=== PATIENT | male | born 1960 | race Caucasian/White ===

== ENCOUNTER 2019-12-09 07:56 | Outpatient (CLI) | payer BC, SELFPAY ==
--- NOTE | ~2019-12-09 | XR_ITS ---
XR chest 2V DATE: 12/09/2019 08:32 INDICATION: Pruritus TECHNIQUE: 2 views COMPARISON: PA and lateral chest FINDINGS: Normal heart size. No hilar or mediastinal enlargement. No pulmonary infiltrate or consolid ation, pleural effusion or pulmonary vascular congestion or pneumothorax. Radiopaque anchor devices a re noted in both humeral heads. Mild degenerative change of the thoracic spine, degenerative change o f the lumbar spine. IMPRESSION: No active cardiopulmonary disease Reviewed, dictated and finalized at location A.
[2019-12-09 08:13] LABS: Hematocrit 40.2 % (40.0-54.0); Hemoglobin 14.2 g/dL (14.0-18.0); Immature Platelet Fraction Pct 1.4 % (1.0-7.0); Mean Corpuscular HGB Conc 35.3 g/dL (32.0-36.0); Mean Corpuscular Hemoglobin 31.8 pg (27.0-31.0); Mean Corpuscular Volume 89.9 fL (78.0-102.0); Mean Platelet Volume 9.4 fl (8.7-11.0); Platelet Count Result 109 K/mm3 (150-420); Red Blood Count 4.47 M/mm3 (4.70-6.10); Red Cell Distribution Width 12.5 % (11.6-14.4); White Blood Count 3.8 K/mm3 (4.8-10.8)
[2019-12-09 08:56] LABS: Alanine Aminotransferase 45 U/L (16-63); Albumin Level 4.1 g/dL (3.4-5.0); Alkaline Phosphatase 85 U/L (46-116); Aspartate Amino Transferase 25 U/L (15-37); Bilirubin,Total 0.5 mg/dL (0.00-1.00); Blood Urea Nitrogen 25 mg/dL (7-18); Calcium 8.6 mg/dL (8.5-10.1); Carbon Dioxide 28 mmol/L (21-32); Chloride 103 mmol/L (98-108); Estimated Glomerular Filt Rate > 60; Glucose 103 mg/dL (70-99); Lactate Dehydrogenase 142 U/L (85-227); Osmolality Calculated 298 mOsm/kg (285-295); Sodium 142 mmol/L (136-145); Total Protein 7.2 g/dL (6.4-8.2)
[2019-12-09 09:00] LABS: Band Neutrophils Percent 0 % (0-6); Basophils Absolute Manual 0.03 K/mm3 (0-0.1); Basophils Percent Manual 1 % (0-1); Eosinophils Absolute Manual 0.03 K/mm3 (0.02-0.5); Eosinophils Percent Manual 1 % (1-6); Lymphocytes Absolute Manual 1.97 K/mm3 (1.1-4.5); Lymphocytes Percent Manual 52 % (18-44); Monocytes Absolute Manual 0.11 K/mm3 (0.1-0.90); Monocytes Percent Manual 3 % (3-9); Neutrophils Absolute Manual 1.63 K/mm3 (1.3-6.7); Neutrophils Percent Manual 43 % (46-73); Total Cells Counted 100
[2019-12-09 09:01] LABS: Platelet Estimate Decreased (Adequate)
[2019-12-09 09:20] LABS: CRP < 0.2 mg/dL (0.0-0.9)
[2019-12-09 09:21] LABS: Thyroid Stimulating Hormone Reflex 2.33 u/IU/mL (0.36-3.74)
[2019-12-09 09:25] LABS: Erythrocyte Sedimentation Rate 6 mm/hr (0-20)
== END 2019-12-09 07:57 | disposition home or self-care (01) ==
PROVIDERS: PCP Internal Medicine; Visit Provider Specialist
DX: L29.9 Pruritus, unspecified (principal)
CPT/HCPCS: 36415; 71046; 80053; 83615; 84443; 85025; 85055; 85652; 86140

== ENCOUNTER 2021-06-26 08:28 | Outpatient (CLI) | payer BC, SELFPAY ==
[2021-06-26 09:28] LABS: Influenza A QL RT-PCR Negative (Negative); Influenza B QL RT-PCR Negative (Negative); SARS-CoV-2 RNA PCR Positive (Negative)
== END 2021-06-26 08:29 | disposition home or self-care (01) ==
PROVIDERS: PCP Internal Medicine; Visit Provider Internal Medicine
DX: U07.1 COVID-19 (principal); J06.9 Acute upper respiratory infection, unspecified
CPT/HCPCS: 87502; C9803; U0003; U0005

== ENCOUNTER 2021-06-28 09:57 | Outpatient (CLI) | payer BC, SELFPAY ==
--- NOTE | 2021-06-28 10:10 | PC.NURSE ---
PT to room 212 amb. A&Ox3. Regeneron infusion plan of care discussed. Pt signed consent. Has no question. Oriented to room. Call muniz in reach. Reminded to call with needs.
[2021-06-28 10:21] VITALS: BP 162/91; PULSE 89; RESP 20; O2SAT 94
[2021-06-28] MEDS: FAMOTIDINE 20 MG TABLET PO (10:27)
[2021-06-28] MEDS: ACETAMINOPHEN 325 MG TABLET 650 MG PO (10:27)
[2021-06-28] MEDS: diphenhydrAMINE HCl CAP 25 MG CAPSULE PO (10:27)
--- NOTE | 2021-06-28 12:06 | PC.NURSE ---
Pt has no complaints. Discharged to home amb per self.
== END 2021-06-28 09:58 | disposition home or self-care (01) ==
LOC: CHSLAB 10:00
PROVIDERS: PCP Internal Medicine; Visit Provider Internal Medicine
DX: U07.1 COVID-19 (principal); J44.9 Chronic obstructive pulmonary disease, unspecified
CPT/HCPCS: A9270; J7050; M0243; Q0244

== ENCOUNTER 2021-06-30 11:31 | Outpatient (CLI) | payer BC, SELFPAY ==
--- NOTE | ~2021-06-30 | XR_ITS ---
EXAMINATION: XR chest 2V EXAM DATE: 06/30/2021 12:47 INDICATION: COVID, Cough, SOB TECHNIQUE: Frontal and lateral projections of the chest obtained and reviewed. Comparison is made to prior examination from 12/09/2019. FINDINGS: Moderate amount of bilateral ill-defined airspace disease likely COVID pneumonia given his tory provided. There is no pneumothorax suspected. Borderline heart size. No sizable pleural effusion . Bilateral shoulder rotator cuff repair anchors. IMPRESSION: Moderate amount of bilateral pneumonia. Reviewed, dictated and finalized at location A. K CHAUFFEUR
--- NOTE | ~2021-06-30 | CT_ITS ---
EXAMINATION: CTA chest PE protocol EXAM DATE: 06/30/2021 15:24 INDICATION: COVID pneumonia. Shortness of breath, cough, positive d-dimer. TECHNIQUE: Spiral CTA of the chest (pulmonary arteries) was performed with 100 cc Omnipaque 350 intr avenous contrast injection. Images were acquired during the pulmonary arterial phase. Coronal maxi mum intensity projection 3D-reconstructions were created by the technologist on dedicated workstation . Axial, coronal and sagittal reformatted images were reviewed. The dose-length product (DLP) for t his examination was 813.83 mGy-cm. The exposure was tailored according to patient size (auto mA exp osure control), and iterative reconstruction (ASIR) was used as additional dose reduction technique. There is no prior study for comparison. FINDINGS: There is suboptimal pulmonary arterial opacification, but enough for diagnostic purposes, no central pulmonary emboli. No segmental pulmonary emboli suspected. No thoracic aortic dissection. Moderate amount of bilateral peripheral predominant groundglass airspace disease, appearance is con sistent with acute phase COVID pneumonia. There are no pleural or pericardial effusions. Tracheobr onchial tree is patent. There is no mediastinal, hilar or axillary lymphadenopathy. There is no p neumothorax. Heart normal in size. No evidence of coronary arterial calcification. Upper abdomen is unremarkable. There is thoracic spondylosis without osteoblastic or osteolytic lesions identifi ed. IMPRESSION: 1. No pulmonary emboli suspected. 2. Moderate airspace disease consistent with acute stage COVID pneumonia. Reviewed, dictated and finalized at location A. NTIFIC TECHNICAL WRITER
[2021-06-30 13:03] LABS: Base Excess ABG 1.7 mmol/L (0-2); HCO3 ABG 24.5 mmol/L (23-29); PCO2 ABG 32.7 mmHg (35-45); PO2 ABG 87.4 mmHg (80-90); Total Hemoglobin 13.4 g/dL (12.0-18.0); pH ABG 7.49 (7.35-7.45)
[2021-06-30 13:04] LABS: Device ROOM AIR; Eosinophils Absolute Auto 0.02 K/mm3 (0.02-0.50); Eosinophils Percent Auto 0.4 % (1.0-6.0); Hematocrit 35.9 % (40.0-54.0); Hemoglobin 12.6 g/dL (14.0-18.0); Immature Granulocyte Absolute 0.03 K/mm3 (0.00-0.00); Immature Granulocyte Percent A 0.6 % (0.0-0.0); Immature Platelet Fraction Pct 1.5 % (1.0-7.0); Lymphocytes Absolute Auto 0.76 K/mm3 (1.10-4.50); Lymphocytes Percent Auto 16.3 % (18.0-42.0); Mean Corpuscular HGB Conc 35.1 g/dL (32.0-36.0); Mean Corpuscular Hemoglobin 31.2 pg (27.0-31.0); Mean Corpuscular Volume 88.9 fL (78.0-102.0); Mean Platelet Volume 9.6 fl (8.7-11.0); Modified Allen's Test Pass; Monocytes Absolute Auto 0.04 K/mm3 (0.10-0.90); Monocytes Percent Auto 0.9 % (2.0-11.0); Neutrophils Absolute Auto 3.8 K/mm3 (1.7-7.2); Neutrophils Percent Auto 81.8 % (50.0-70.0); Platelet Count Result 145 K/mm3 (150-420); Red Blood Count 4.04 M/mm3 (4.70-6.10); Red Cell Distribution Width 12.1 % (11.6-14.4); Site Drawn LEFT RADIAL; White Blood Count 4.7 K/mm3 (4.8-10.8)
[2021-06-30 13:18] LABS: Alanine Aminotransferase 58 U/L (16-63); Albumin Level 2.9 g/dL (3.4-5.0); Alkaline Phosphatase 111 U/L (46-116); Anion Gap 12 mmol/L (8-16); Aspartate Amino Transferase 32 U/L (15-37); Bilirubin,Total 0.4 mg/dL (0.00-1.00); Blood Urea Nitrogen 23 mg/dL (7-18); Calcium 8.6 mg/dL (8.5-10.1); Carbon Dioxide 26 mmol/L (21-32); Chloride 100 mmol/L (98-108); Estimated Glomerular Filt Rate > 60; Glucose 112 mg/dL (70-99); Osmolality Calculated 290 mOsm/kg (285-295); Potassium 3.3 mmol/L (3.5-5.1); Sodium 138 mmol/L (136-145); Total Protein 7.5 g/dL (6.4-8.2)
[2021-06-30 13:26] LABS: CRP 19.5 mg/dL (0.0-0.9)
[2021-06-30 13:43] LABS: D Dimer 0.65 mg/L (0.19-0.50)
== END 2021-06-30 11:32 | disposition home or self-care (01) ==
PROVIDERS: PCP Internal Medicine; Visit Provider Internal Medicine
DX: R06.00 Dyspnea, unspecified (principal); R05.9 Cough, unspecified; U07.1 COVID-19
CPT/HCPCS: 36415; 36600; 71046; 71275; 80053; 82805; 85025; 85055; 85380; 86140; Q9967

== ENCOUNTER → 2022-10-02 10:00 | Outpatient (CLI) | payer BC, SELFPAY ==
--- NOTE | ~2022-10-02 | XR_ITS ---
Lumbosacral Spine: AP, oblique, and lateral views Clinical History: Pain Findings: The normal lordotic curve is maintained. 6 mm anterolisthesis of L4 over L5 noted. No fract ure seen. There is mild facet arthropathy from L3 through S1. The sacroiliac joints are normally outl ined. Impression: 6 mm anterolisthesis of L4 over L5. Mild degenerative spondylosis, as above. Reviewed, dictated and finalized at location . Impression: 6 mm anterolisthesis of L4 over L5. Mild degenerative spondylosis, as above.
== END ==
PROVIDERS: PCP Internal Medicine
DX: M54.50 Low back pain, unspecified (principal); M43.06 Spondylolysis, lumbar region
CPT/HCPCS: 72110

== ENCOUNTER 2024-06-30 08:28 | Outpatient (CLI) | payer BC, SELFPAY ==
--- NOTE | ~2024-06-30 | CT_ITS ---
CT IAC/mastoids BI wo con Ordering provider: August Corley, BYPRODUCT ENGINEER Technique: CT temporal bones was performed by obtaining thin slice axial images. Coronal and sagittal reformatted images were also obtained. No contrast was administered. Reason for exam: . HEARING LOSS OF RT EAR . Comparison: None. Findings: RIGHT TEMPORAL BONE: The mastoid air cells are normal and well aerated. The external auditory canal is normal and well aerated. The tympanic membrane as visualized is intact and normal. The middle ear (including the epitympanum, mesotympanum and hypotympanum) is normal and well aerated. The tegmen ty mpani is intact. The scutum is normal. The auditory ossicles are normal. The cochlea, vestibule, ve stibular and cochlear aqueduct are normal. The semicircular canals are normal. The facial nerve can al is normal. The internal auditory canal is normal. The carotid canal and jugular foramen are nor mal. The temporomandibular joint is normal. LEFT TEMPORAL BONE: The mastoid air cells are normal and well aerated. The external auditory canal is normal and well aerated. The tympanic membrane as visualized is intact and normal. The middle ear ( including the epitympanum, mesotypanum and hypotympanum) is normal and well aerated. The tegmen tympa ni is intact. The scutum is normal. The auditory ossicles are normal. The cochlea, vestibule, vest ibular and cochlear aqueduct are normal. The semicircular canals are normal. The facial nerve canal is normal. The internal auditory canal is normal. The carotid canal and jugular foramen are madelaine l. The temporomandibular joint is normal. The visualized brain parenchyma, paranasal sinuses, and superficial soft tissues are normal for patie nt's age. IMPRESSION: No definite abnormality seen bilaterally. Reviewed, dictated and finalized at location A. ACT CENTER DIRECTOR
== END 2024-06-30 08:29 | disposition home or self-care (01) ==
PROVIDERS: PCP Internal Medicine; Visit Provider Nurse Practitioner Family
DX: H90.11 Conductive hearing loss, unilateral, right ear, with unrestricted hearing on the contralateral side (principal)
CPT/HCPCS: 70480

== ENCOUNTER 2024-10-27 00:19 | Day surgery (SDC) | payer BC, SELFPAY ==
[2024-07-06 13:04] VITALS: BMI 35.4
--- NOTE | 2024-07-26 12:25 | SUR.PREOP ---
Pt called to cancel his procedure on 07/28 due to provider availability. Pt rescheduled to 10/27 at 0830.
[2024-10-19 15:44] VITALS: BMI 36.1
--- OUTSIDE RECORDS SUMMARY | 2024-10-27 00:21 | XMS_ITS | Clinical Summary ---
Author Organization [facility] Address [address] [place] [id number] Care Team Providers Care Etl Developer Name Role Phone Te Welsh MD Primary Care Provider [phone] Allergies No known active allergies Medications acetaminophen (TYLENOL) 500 mg tablet Take 1 tablet (500 mg total) by mouth every 6 (six) hours as needed for pain Active Xhance 93 mcg/actuation aerosol breath activatedIndicati ons:chronic rhinosinusitis without nasal polyps Administer 1 Dose into affected nostril(s) 2 (two) times a day 08/03/19 25 Active ibuprofen 200 mg tab/capIndication s:Anti-inflammato ry Take 1 tablet/capsul e (200 mg total) by mouth every 6 (six) hours as needed for pain Active ubidecarenone (coenzyme Q10) 50 mg tabletIndications :supplement Take 1 capsule by mouth boot and saddle repair person before breakfast Active RED BEET ORALIndications:s upplement Take 1 capsule by mouth boot and saddle repair person before breakfast Active magnesium gluconate 200 mg tabletIndications :hypomagnesemia Take 1 tablet (200 mg total) by mouth 2 (two) times a day Active ibuprofen-diphenh ydramine HCl 200-25 mg capsuleIndication s:Insomnia Take 2 capsules by mouth nightly as needed Active multivitamin tabletIndications :Vitamin Deficiency Prevention Take 1 tablet by mouth boot and saddle repair person before breakfast Active HYDROcodone-aceta minophen (NORCO) 5-325 mg per tabletIndications :Pain Take 1 tablet by mouth every 6 (six) hours as needed for pain for up to 15 doses 15 tablet 08/21/19 25 Active ondansetron ODT (ZOFRAN-ODT) 4 mg disintegrating tablet Take 1 tablet (4 mg total) by mouth every 8 (eight) hours as needed for nausea or vomiting 20 tablet 08/21/19 25 Active methylPREDNISolon e (MEDROL DOSEPACK) 4 mg Dosepack Take as directed on package 1 packet 08/21/19 25 Active ofloxacin (FLOXIN) 0.3 % otic solution Administer 5 drops into the right ear daily 5 mL 1 08/24/19 25 Active predniSONE (DELTASONE) 10 mg tablet 60mg for 7 days, 50mg on 8th day, 40mg on 9th day, 30mg on 10th day, 20mg on 11th day and 10mg on 12th day 57 tablet 08/24/19 25 Active azithromycin (ZITHROMAX) 500 mg tablet Take 2 tablets (1,000 mg total) by mouth daily 2 tablet 09/30/19 25 Active azithromycin (ZITHROMAX) 1 gram powder Take 1 packet (1,000 mg total) by mouth once for 1 dose 1 packet 09/30/19 25 2024 Discontinued Active Problems Problem Noted Date Diagnosed Date Otosclerosis of both ears 08/06/2024 Mixed conductive and sensori neural hearing loss of right ear 08/06/2024 Encounters Date Type Department Care Team Description 09/29/2024 10:00 AM CDT Procedure visit [facility] Ot[facility] [address] [place] [address] Medical Office Building [address] [phone] Sensorineural hearing loss (SNHL) of both ears (Primary Dx) 09/29/2024 9:40 AM CDT Office Visit [facility] ENT [address] [place] [address] Medical Office Building [address] [place] [phone] Clary Gardiner MD Mixed conductive and sensorineural hearing loss of right ear, unspecified hearing status on contralateral side (Primary Dx); Otosclerosis of both ears 09/29/2024 Orders Only [facility] [address] [place] [address], [address] [place] [phone] Jennifer Kruger RMA 08/28/2024 2:30 PM VOCATIONAL TRAINING DIRECTOR Office Visit [facility] Ot[facility]aryng[facility] [address], [address] [place] [address] Clary Gardiner MD Mixed conductive and sensorineural hearing loss of right ear, unspecified hearing status on contralateral side (Primary Dx) 08/24/2024 Orders Only [facility] Ot[facility] [address], [address] [place] [address] Jennifer Kruger RMA 08/24/2024 [facility] - [facility] E[facility] [address] [facility] [address] [place] [address] [place] [address] Russell, Cyndi After surgery question 08/21/2024 8:03 AM VOCATIONAL TRAINING DIRECTOR Anesthesia Event [facility] Operating Room [address] [facility] [place] [phone] Rad Chance MD McKenzie, Kerry A., NP 08/21/2024 7:30 AM VOCATIONAL TRAINING DIRECTOR - 08/21/2024 9:15 AM VOCATIONAL TRAINING DIRECTOR Surgery [facility] Operating Room [address] [facility] [address] [facility] [place] [address] Clary Gardiner MD STAPEDECTOMY/STAPEDO NIKOLAS. 08/21/2024 6:58 AM VOCATIONAL TRAINING DIRECTOR - 08/21/2024 10:07 AM VOCATIONAL TRAINING DIRECTOR Hospital Encounter [facility] Operating Room [address] [facility] [place] [address] Clary Gardiner MD Mixed conductive and sensorineural hearing loss of right ear with restricted hearing of left ear [H90.A31] (Primary Dx); Otosclerosis of both ears [H80.93] Discharge Disposition: Discharge to home or self care 08/06/2024 8:54 PM VOCATIONAL TRAINING DIRECTOR - 08/06/2024 11:59 PM VOCATIONAL TRAINING DIRECTOR Hospital Encounter [facility] [address] [place] [address] Discharge Disposition: Discharge to home or self care 08/06/2024 2:20 PM VOCATIONAL TRAINING DIRECTOR Office Visit [facility] ENT [address] Medical Office Building [address] [place] [address] Clary Gardiner MD Otosclerosis of both ears (Primary Dx); Mixed conductive and sensorineural hearing loss of right ear, unspecified hearing status on contralateral side from Last 3 Months Surgical History Surgery Date Site/Laterality Comments SHOULDER SURGERY 07/22/2015 - 07/21/2016 Bilateral 2017 CARPAL TUNNEL RELEASE 07/22/2014 - 07/21/2015 Bilateral 2016 KNEE CARTILAGE SURGERY 08/22/2005 - 09/18/2005 Right HERNIA REPAIR 07/22/2014 - 07/21/2015 EAR SURGERY 07/22/1999 - 07/21/2000 LASIK 07/22/2004 - 07/21/2005 Bilateral Medical History Medical History Date Comments Low back pain Right hip pain PONV (postoperative nausea and vomiting) Sleep apnea Family History Medical History Relation Name Comments Bladder Cancer Father Anesthesia problems Neg Hx Relation Name Status Comments Father Social History Tobacco Use Types Packs/Day Years Used Date Smoking Tobacco: Never Smokeless Tobacco: Never Tobacco Cessation:Counseling Given: No AUDIT-C Answer Date Recorded Q1: How often do you have a drink containing alcohol? 4 or more times a week 08/21/2024 Q2: How many drinks containi ng alcohol do you have on a typical day when you are drinking? 3 or 4 Q3: How often do you have si x or more drinks on one occasion? Never 08/21/2024 Personal Safety Answer Date Recorded Have you ever been in or are you currently in a harmful physical or emotional relationship or is someone making you feel afraid or unsafe? Denies 08/21/2024 Sex and Gender Information Value Date Recorded Sex Assigned at Not on file Legal Sex Male 12:36 PM CDT Gender Identity Not on file Sexual Orientation Not on file Obstetrics History Last Filed Vital Signs Vital Sign Reading Time Taken Comments Blood Pressure 123/68 08/21/2024 9:55 AM VOCATIONAL TRAINING DIRECTOR Pulse 58 08/21/2024 10:00 AM VOCATIONAL TRAINING DIRECTOR Temperature 36.2 C (97.2 F) 08/21/2024 9:20 AM VOCATIONAL TRAINING DIRECTOR Respiratory Rate 21 08/21/2024 10:00 AM VOCATIONAL TRAINING DIRECTOR Oxygen Saturation 100% 08/21/2024 10:00 AM VOCATIONAL TRAINING DIRECTOR Inhaled Oxygen Concentration - - Weight 113.9 kg (251 lb) 08/21/2024 8:00 AM VOCATIONAL TRAINING DIRECTOR Height 175.3 cm (5' 9 ) 08/21/2024 8:00 AM VOCATIONAL TRAINING DIRECTOR Body Mass Index 37.07 08/21/2024 8:00 AM VOCATIONAL TRAINING DIRECTOR Plan of Treatment Health Maintenance Due Date Last Done Comments Colon Cancer Screening-Colonoscopy 1961 Depression Screening 1961 Hepatitis C Screening 1961 Prostate Cancer Screening-PSA 1961 DTaP/Tdap/Td Vaccine (1 - Tdap) 02/24/1972 Hepatitis B Screening 1979 Regular Well Visit/Exam 18-64 1979 Zoster Vaccine (1 of 2) 2011 Influenza Vaccine (#1) 2024 Pneumococcal vaccine <65 Aged Out No longer eligible based on patient's age to complete this topic Medical Devices Implanted Type Area Garland Machine Operator Device Identifier Shelf Expiration Date Model / Serial / Lot Kristen Raymond Eclipse .6mm 4.5mm Wide Flat Ribbon [employer]us 360d Piston Otology 472-450 - [id number] Implanted:Qty: 1 on 08/21/2024 by Clary Gardiner MD at [facility] Right: Ear Kristen Raymond [id number] 02/19/2029 472-450 / / [id number] Procedures Procedure Name Priority Date/Time Associated Diagnosis Comments AUDBASE RESULTS 09/29/2024 9:52 AM CDT NC AN PROCEDURE PLACEHOLDER Routine 08/21/2024 8:25 AM VOCATIONAL TRAINING DIRECTOR NC AN ELECTIVE ENDOTRACHEAL AIRWAY Routine 08/21/2024 8:25 AM VOCATIONAL TRAINING DIRECTOR STAPEDECTOMY/STAPEDOT ALEKSANDAR. 08/21/2024 8:03 AM VOCATIONAL TRAINING DIRECTOR Otosclerosis, bilateral NEURO CT OUTSIDE REFERENCE Routine 08/06/2024 8:54 PM VOCATIONAL TRAINING DIRECTOR from Last 3 Months Results * AudBase Results (09/29/2024 9:52 AM CDT) Provider Scanning AUDIOLOGY SERVICES ORDERABLES Final Result * NC AN ELECTIVE ENDOTRACHEAL AIRWAY, NC AN PROCEDURE PLACEHOLDER (08/21/2024 8:25 AM VOCATIONAL TRAINING DIRECTOR) Narrative Sharee Kelley CRNA - 08/21/2024 8:25 AM VOCATIONAL TRAINING DIRECTOR Sharee Kelley CRNA 08/21/2024 8:26 AM Airway Patient location: OR Urgency: elective Indications for airway management: anesthesia Difficult airway: no Staff: Placed by: WET WHEELER: Sharee Kelley CRNA Emergent airway documentation: Risks and benefits discussed: yes Consent obtained: yes Consent given by: patient Airway prep: Preoxygenated: yes Patient position: sniffing Mask difficulty assessment: 1 - vent by mask Spontaneous ventilation during airway: absent Sedation level during airway: GA Final airway details: Final airway type: endotracheal airway Tube type: ETT ETT size: 7.5 mm Cuffed: yes Technique used for successful ETT placement: video laryngoscopy Devices/Methods used in placement: intubating stylet Insertion site: oral Blade type: Antony Video blade type: Gonzalez Blade size: 4 Cormack-Lehane (video): grade I - full view of glottis Cuff volume: 5 mL Cuff inflated with: air ETT to teeth: 23 cm Placement verified by: auscultation Airway secured with: silk tape Number of attempts: 1 Result [facility] Rad Chance MD ANESTHESIA ORDERABLES [place] l Result * Neuro CT Outside Reference (08/06/2024 8:54 PM VOCATIONAL TRAINING DIRECTOR) Impressions [facility] - 08/06/2024 8:54 PM VOCATIONAL TRAINING DIRECTOR These images are for Reference purposes only and have not been reviewed by [facility]. There will be no report generated by a [facility] Radiologist. Narrative [facility] - 08/06/2024 8:54 PM VOCATIONAL TRAINING DIRECTOR EXAMINATION: Images For Reference Purposes Only Clary Gadriner MD IMG CT PROCEDURES Final Resul t [facility] from Last 3 Months Insurance [employer] [place] [employer] [place] Care Teams Etl Developer Relationship Specialty Start Date End Date Te Welsh MD PCP - General Internal Medicine 10/24/22
--- OUTSIDE RECORDS SUMMARY | 2024-10-27 00:21 | XMS_ITS | Referral Summary ---
Author Organization [facility] Address [address] [place] [address] Care Team Providers Care Survey Compiler Name Role Phone Te Welsh MD Primary Care Provider [phone] Encounters Date Type Department Care Team Description 09/29/2024 Orders Only [facility] Otolaryngology [address] [facility], [address] [address] Jennifer Kruger RMA 09/29/2024 10:00 AM CDT Procedure visit [facility] Otolaryngology [address] [place] [address] Medical Office Building [address] [address] Sensorineural hearing loss (SNHL) of both ears (Primary Dx) 09/29/2024 9:40 AM CDT Office Visit [facility] [address] [place] [address] Medical Office Building [address] [address] Clary Gardiner MD Mixed conductive and sensorineural hearing loss of right ear, unspecified hearing status on contralateral side (Primary Dx); Otosclerosis of both ears 08/28/2024 2:30 PM MIXING PLANT OPERATOR Office Visit [facility] Otolaryngology [facility], [address] [address] Clary Gardiner MD Mixed conductive and sensorineural hearing loss of right ear, unspecified hearing status on contralateral side (Primary Dx) 08/24/2024 Orders Only [facility] Otolaryngology [facility], [address] [place], [place] [phone] Jennifer Kruger RMA 08/24/2024 [facility] ([facility] - [facility] [address] [facility] Advanced Medicine 11th Floor [address] [phone] Demario, Cyndi After surgery question 08/21/2024 7:30 AM MIXING PLANT OPERATOR - 08/21/2024 9:15 AM MIXING PLANT OPERATOR Surgery [facility] Surgery Center Operating Room [address] [place] [phone] Clary Gardiner MD STAPEDECTOMY/STAPEDO NIKOLAS. 08/21/2024 8:03 AM MIXING PLANT OPERATOR Anesthesia Event [facility] Operating Room [address] [place] [address] Rad Chance MD McKenzie, Kerry A., NP 08/21/2024 6:58 AM MIXING PLANT OPERATOR - 08/21/2024 10:07 AM MIXING PLANT OPERATOR Hospital Encounter [facility] Center Operating Room [address] [place] [address] Clary Gardiner MD Mixed conductive and sensorineural hearing loss of right ear with restricted hearing of left ear [H90.A31] (Primary Dx); Otosclerosis of both ears [H80.93] Discharge Disposition: Discharge to home or self care 08/06/2024 8:54 PM MIXING PLANT OPERATOR - 08/06/2024 11:59 PM MIXING PLANT OPERATOR Hospital Encounter [facility] [address] [place], [place] [id number] Discharge Disposition: Discharge to home or self care 08/06/2024 2:20 PM MIXING PLANT OPERATOR Office Visit [facility] [address] [facility] Medical Office Building 4 [address] [place] [phone] Clary Gardiner MD Otosclerosis of both ears (Primary Dx); Mixed conductive and sensorineural hearing loss of right ear, unspecified hearing status on contralateral side from Last 3 Months Allergies No known active allergies Medications acetaminophen [...] tabletIndications :supplement Take 1 capsule by mouth coach builder before breakfast Active RED BEET ORALIndications:s upplement Take 1 capsule by mouth coach builder before breakfast Active magnesium gluconate 200 mg tabletIndications :hypomagnesemia Take 1 tablet (200 mg total) by mouth 2 (two) times a day Active ibuprofen-diphenh ydramine HCl 200-25 mg capsuleIndication s:Insomnia Take 2 capsules by mouth nightly as needed Active multivitamin tabletIndications :Vitamin Deficiency Prevention Take 1 tablet by mouth coach builder before breakfast Active HYDROcodone-aceta minophen (NORCO) 5-325 [...] neural hearing loss of right ear 08/06/2024 Social History Tobacco Use Types Packs/Day Years [...] on file Sexual Orientation Not on file Last Filed Vital Signs Vital Sign Reading Time Taken Comments Blood Pressure 123/68 08/21/2024 9:55 AM MIXING PLANT OPERATOR Pulse 58 08/21/2024 10:00 AM MIXING PLANT OPERATOR Temperature 36.2 C (97.2 F) 08/21/2024 9:20 AM MIXING PLANT OPERATOR Respiratory Rate 21 08/21/2024 10:00 AM MIXING PLANT OPERATOR Oxygen Saturation 100% 08/21/2024 10:00 AM MIXING PLANT OPERATOR Inhaled Oxygen Concentration - - Weight 113.9 kg (251 lb) 08/21/2024 8:00 AM MIXING PLANT OPERATOR Height 175.3 cm (5' 9 ) 08/21/2024 8:00 AM MIXING PLANT OPERATOR Body Mass Index 37.07 08/21/2024 8:00 AM MIXING PLANT OPERATOR Plan of Treatment Not on file Medical Devices Implanted Type Area Director Of Group Sales Device Identifier Shelf Expiration Date Model / Serial / Lot [employer] Eclipse .6mm 4.5mm Wide Flat Ribbon [employer]us 360d Piston Otology [id number] - [id number] Implanted:Qty: 1 on 08/21/2024 by Clary Gardiner MD at [facility] Right: Ear Kristen Raymond [id number] 02/19/2029 [id number] / / [id number] Procedures Procedure Name Priority Date/Time Associated Diagnosis Comments AUDBASE RESULTS 09/29/2024 9:52 AM CDT AR AN PROCEDURE PLACEHOLDER Routine 08/21/2024 8:25 AM MIXING PLANT OPERATOR AR AN ELECTIVE ENDOTRACHEAL AIRWAY Routine 08/21/2024 8:25 AM MIXING PLANT OPERATOR STAPEDECTOMY/STAPEDOT ALEKSANDAR. 08/21/2024 8:03 AM MIXING PLANT OPERATOR Otosclerosis, bilateral NEURO CT OUTSIDE REFERENCE Routine 08/06/2024 8:54 PM MIXING PLANT OPERATOR from Last 3 Months Results * AudBase Results (09/29/2024 9:52 AM CDT) Provider Scanning AUDIOLOGY SERVICES ORDERABLES Final Result * AR AN ELECTIVE ENDOTRACHEAL AIRWAY, AR AN PROCEDURE PLACEHOLDER (08/21/2024 8:25 AM MIXING PLANT OPERATOR) Narrative Sharee Kelley CRNA - 08/21/2024 8:25 AM MIXING PLANT OPERATOR Sharee Kelley CRNA 08/21/2024 8:26 AM Airway Patient location: OR Urgency: elective Indications for airway management: anesthesia Difficult airway: no Staff: Placed by: AUDIOLOGY DIRECTOR: Sharee Kelley CRNA Emergent airway documentation: Risks [...] with: silk tape Number of attempts: 1 us Rad Chance MD ANESTHESIA ORDERABLES [facility] Result * Neuro CT Outside Reference (08/06/2024 8:54 PM MIXING PLANT OPERATOR) Impressions [facility] - 08/06/2024 8:54 PM MIXING PLANT OPERATOR These images are for Reference purposes only and have not been reviewed by [facility] Radiology. There will be no report generated by a [facility] Radiologist. Narrative [facility] - 08/06/2024 8:54 PM MIXING PLANT OPERATOR EXAMINATION: Images For Reference Purposes Only us Clary Gardiner MD IMG CT PROCEDURES Final Resul t [facility] from Last 3 Months Insurance [place] Care Teams Survey Compiler Relationship Specialty Start Date End Date Te Welsh MD PCP - General Internal Medicine 10/24/22
--- OUTSIDE RECORDS SUMMARY | 2024-10-27 00:21 | XMS_ITS | Clinical Summary ---
Author Organization [facility] Address [address] [place] [address] Care Team Providers Care Axminster Weaver Name Role Phone Te Welsh MD Primary Care Provider [phone] Social History Tobacco Use Types Packs/Day Years Used Date Smoking Tobacco: Never Assessed Sex and Gender Information Value Date Recorded Sex Assigned at Not on file Legal Sex Male 10:52 AM SALES AGENT [employer] Gender Identity Not on file Sexual Orientation Not on file Plan of Treatment Health Maintenance Due Date Last Done Comments DTAP/TDAP/TD VACCINES (1 - Tdap) 02/24/1980 COLORECTAL SCREENING 2006 Colorectal Cancer Screening 2006 FIT-DNA Q 3 years 2006 FIT/FOBT Q 1 year 2006 Flex Sig/CT Colonography Q 5 years 2006 ZOSTER VACCINE (1 of 2) 2011 INFLUENZA VACCINE (#1) 2024 RSV VACCINE (60+ or ) (1 - 1-dose 75+ series) 02/24/[address] [facility] BLUE ACCESS/TRUE BLUE PPO [facility] BLUE ACCESS/TRUE BLUE PPO Care Teams Axminster Weaver Relationship Specialty Start Date End Date Te Welsh MD [address] [place] [address] PCP - General Internal Medicine 09/30/18
[2024-10-27 07:18] VITALS: BP 173/92; PULSE 65; RESP 20; TEMP 36.2; O2SAT 65; BMI 36.3
[2024-10-27] MEDS: LACTATED RINGERS 1,000 ML 150 ML IV CONT (07:30)
[2024-10-27 07:44] VITALS: BP 154/96
--- NOTE | 2024-10-27 08:12 | PM.HPGS ---
History of Present Illness History of Present Illness Consent: Risks, benefits, and alternatives have been discussed and questions answered. Patient agrees to proceed with procedure. Chief complaint: Neoplasm Screening Narrative: Faisal Hendricks is a 64 year old male here for screening colonoscopy, last one 13 years ago Review of Systems Review of Systems: All systems reviewed & are unremarkable except as noted in HPI and below PMFSH Past Medical History Medical History (Updated 10/27/24 @ 08:13 by Oseas Mitchell MD) Colon cancer screening Social History Social History Smoking status: Never smoker Alcohol intake: current Drinks per week: 12 Substance use: current Substance use type: marijuana Other substance usage details: gummies at night for sleep Living arrangements: with family Spiritual care concerns: No Meds Home Medications and Allergies Home Medications ?Medication ?Instructions ?Recorded ?Confirmed ?Type ibuprofen 200 mg tablet (Advil) 600 mg PO Q6H PRN pain 10/19/24 10/19/24 History ibuprofen-diphenhydramine citrate 1 cap PO HS PRN sleep 10/19/24 10/19/24 History 200 mg-38 mg tablet (Advil PM) Allergies Allergy/AdvReac Type Severity Reaction Status Date / Time No Known Allergies Allergy Verified 10/27/24 07:17 Vital Signs Vital Signs - 24 hr 10/27/24 07:18 10/27/24 07:44 Temperature 97.1 F L Pulse Rate 65 Respiratory Rate 20 Blood Pressure 173/92 H 154/96 H Pulse Oximetry 65 L Oxygen Delivery Room Air Exam Const: General: comfortable and no acute distress HENMT: Face/Nose/Sinus: Normal nares present Eyes: General: appearance normal, both eyes and all related structures Neck: Neck: no JVD Resp: Auscultation: clear to auscultation bilaterally Cardio: Rate: regular rate Rhythm: regular rhythm GI: Inspection: non-distended GI Palp: Yes Soft to palpation Skin: General skin exam: normal color Neuro: General: gait normal Speech: normal speech Extrem: General: normal to inspection Psych: Mental Status: mental status grossly normal Assessment and Plan Assessment and plan (1) Colon cancer screening: Code(s): Z12.11 - Encounter for screening for malignant neoplasm of colon Status: Acute Assessment and Plan: colonoscopy
[2024-10-27 08:36] VITALS: BP 133/78; PULSE 72; RESP 22; O2SAT 98
[2024-10-27 08:46] VITALS: BP 131/77; PULSE 68; RESP 18; O2SAT 97
[2024-10-27 08:56] VITALS: BP 139/85; PULSE 60; RESP 20; O2SAT 99
== END 2024-10-27 09:01 | disposition home or self-care (01) ==
PROVIDERS: PCP Internal Medicine; Referring Provider Internal Medicine; Visit Provider Internal Medicine Gastroenterology
PROC: 0DJD8ZZ Inspection of Lower Intestinal Tract, Via Natural or Artificial Opening Endoscopic (ICD-10-PCS; CPT 45378; principal; 2024-10-27 08:30)
DX: Z12.11 Encounter for screening for malignant neoplasm of colon (principal); K64.8 Other hemorrhoids; F12.90 Cannabis use, unspecified, uncomplicated; Z79.1 Long term (current) use of non-steroidal anti-inflammatories (NSAID)
CPT/HCPCS: 45378; J2704; J7120